=== PATIENT | female | born 1960 | race Caucasian/White ===

== ENCOUNTER 2017-01-01 09:42 | Day surgery (SDC) | payer BC ==
[2016-12-28 13:47] LABS: BASOPHILS 1.9 %; EOSINOPHILS 2.7 %; EOSINOPHILS ABSOLUTE 0.14 10/3/uL (0.0-0.53); HEMOGLOBIN 14.6 g/dL (12.0-16.0); IMMATURE GRANULOCYTES 0.2 %; IMMATURE GRANULOCYTES ABSOLUTE 0.01 10/3/uL (0.0-0.11); LYMPHOCYTES 38.8 %; LYMPHOCYTES ABSOLUTE 2.02 10/3/uL (0.67-4.30); MEAN CORPUS HGB CONC 33.6 g/dL (32.0-36.0); MEAN CORPUSCULAR HEMOGLOB 32.1 pg (26.0-34.0); MEAN CORPUSCULAR VOLUME 95.4 fL (80-100); MEAN PLATELET VOLUME 9.5 fL (9.2-13.0); MONOCYTES 6.7 %; MONOCYTES ABSOLUTE 0.35 10/3/uL (0.21-1.20); NEUTROPHILS 49.7 %; NEUTROPHILS ABSOLUTE 2.58 10/3/uL (2.02-8.40); PLATELET COUNT 242 10/3/uL (150-400); RBC DISTRIBUTION WIDTH 12.9 % (12.0-16.0); RED CELL COUNT 4.55 10/6/uL (4.0-5.6); WHITE BLOOD CELLS 5.2 10/3/uL (4.5-10.5)
[2016-12-28 13:50] LABS: HEMATOCRIT 43.4 % (36.0-48.0); MANUAL DIFF NO %
[2016-12-28 14:04] LABS: BUN (BLOOD UREA NITROGEN) 14 MG/DL (6-23); CALCIUM, SERUM 9.4 MG/DL (8.5-10.4); CHLORIDE, SERUM 110 MMOL/L (96-112); CO2 (CARBON DIOXIDE) 25 MMOL/L (24-34); CREATININE 0.77 MG/DL (0.55-1.02); GFR AFRICAN AMERICAN 100 ML/MIN (>=60); GFR NON AFRICAN AMERICAN 86 ML/MIN (>=60); GLUCOSE, SERUM 97 MG/DL (60-99); SODIUM, SERUM 143 MMOL/L (135-148)
[2016-12-28 14:05] LABS: POTASSIUM, SERUM 5.3 MMOL/L (3.5-5.3)
[2016-12-28 14:18] LABS: PARTIAL THROMBO TIME 22.8 SEC (22.5-37.2); PROTIME (NOT ORD) 12.9 SEC (12.0-14.5)
[2016-12-28 14:20] LABS: PFA (COL/EPI) 283 SEC (72-180)
[2016-12-28 14:25] LABS: PFA (COL/ADP) 80 SEC (51-105)
--- NOTE | ~2017-01-01 | HP ---
History And Physical [address] [address] NAME: CHESTER RUIZ : 60 STATUS : [facility]#: [id number] AGE: 57 ADM/REG DATE : 01/01/17 MR#: [id number] REPORT SERV DATE: 01/19/17 DICTATED BY: BREANA CAMP DATE: 01/19/17 REPORT STATUS : Draft TRANSCRIBED BY: NOEL DATE: 01/19/17 DATE OF ADMISSION: 01/01/2017 PREOPERATIVE DIAGNOSIS: Surgical absence of the breast. 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 PHYSICAL EXAMINATION: HEENT: Within normal limits. BREASTS: Surgical absence of the right breast, late effect of radiation. HEART AND LUNGS: Clear. ABDOMEN: Soft, nontender. Positive bowel sounds. EXTREMITIES: Within normal limits. NEUROLOGIC: Within normal limits. MUSCULOSKELETAL: Within normal limits. IMPRESSION: Surgical absence of the breast, late effect of radiation. PLAN: Tissue survival equipment repairer exchange to definitive implant fat grafting. JOSELITO/NOEL Breana Camp M.D. / [id number] CC: Abdirashid Feliz M.D.
--- NOTE | ~2017-01-01 | OP ---
Record Of Operation [facility] [address] [place]. [address] NAME: CHESTER RUIZ : 60 STATUS : [facility]#: [id number] AGE: 56 ADM/REG DATE : 01/01/17 MR#: [id number] REPORT SERV DATE: 01/01/17 DICTATED BY: BREANA CAMP DATE: 01/01/17 REPORT STATUS : Draft TRANSCRIBED BY: MODJavier DATE: 01/01/17 DATE OF PROCEDURE: 01/01/2017 PREOPERATIVE DIAGNOSIS: Surgical absence of the right breast, breast deformity, late effect of radiation. POSTOPERATIVE DIAGNOSIS: Surgical absence of the right breast, breast deformity, late effect of radiation. PROCEDURE: Fat grafting and implant exchange to a 555 MH. INDICATIONS AND FINDINGS OF THE PROCEDURE: This 56-year-old female is status post a right tissue expansion based reconstruction left reduction and then postoperative radiation. She now has a significant radiation damage to the right breast envelope which required fat grafting and implant exchange. DETAILS OF THE PROCEDURE: The patient was brought to the operating room after being marked in the preoperative holding area. She was prepped and draped in usual sterile fashion for the above-described procedure. First, our attention was turned to the abdomen. Through small stab incisions, she was infiltrated with about 300 mL of wetting solution with about 250 mL of fatty aspirate is now removed through a REVOLVE apparatus. This has been treated appropriately and then transferred into 10 and 3 mL syringes. Incision was then made in the inframammary crease and dissection was carried down to the level of the tissue sock lining examiner. The tissue sock lining examiner was ruptured and removed and a significant capsulotomy was carried out circumferentially excluding the medial component with multiple radial incisions in checkerboards throughout. This was then irrigated, checked for hemostasis, and a 500 mL Sizer was placed into the site. Then with the Sizer in place, the fat grafting was carried out into the topographical map placed before surgery. About 150 mL of fat was used. With this completed, she was once again cleansed with Hibiclens, gloves were changed, and the Sizer was removed. The pocket was inspected for hemostasis. An inferior drain was then placed and a 555 MH implant was placed into the site. This was manipulated into an appropriate position and the wounds were then closed with multiple layers of Vicryl and Monocryl through to an intracuticular in the skin. She was cleansed with peroxide. Dry dressings were placed. The drain was set to suction. She was remanded to the recovery room in stable condition. All sponge and needle counts were correct. JOSELITO/NOEL Breana Camp M.D. / [id number] CC: Record Of Operation [address] [address] NAME: CHESTER RUIZ : 60 STATUS : [facility] PAT#: [id number] AGE: 56 ADM/REG DATE : 01/01/17 MR#: [id number] REPORT SERV DATE: 01/01/17 DICTATED BY: BREANA CAMP DATE: 01/01/17 REPORT STATUS : Draft TRANSCRIBED BY: NOEL DATE: 01/01/17 bAdirashid Feliz M.D.
[~2017-01-01 09:42] MED LIST: ARIMIDEX1 PO; ATV.5 PO; CLARIT10 PO; CYTOXAN; EFFEX37.5 PO; MELATONIN5 M1 PO; NORCO1 TA1 PO; PR25 PO; PRILO PO; ZOFRAN8 PO; ZYRTEC ALLGY10 MG PO
== END 2017-01-01 17:33 | disposition home or self-care (01) ==
LOC: SDC 09:42
PROVIDERS: Surgery Surgery of the Hand
PROC: 0HRT0JZ Replacement of Right Breast with Synthetic Substitute, Open Approach (ICD-10-PCS; 2017-01-01)
PROC: 0HU Skin and Breast, Supplement (ICD-10-PCS; 2017-01-01)
PROC: 0HPT0NZ Removal of Tissue Expander from Right Breast, Open Approach (ICD-10-PCS; principal; 2017-01-01 11:45)
DX: T85.49XA Other mechanical complication of breast prosthesis and implant, initial encounter (principal); Y84.2 Radiological procedure and radiotherapy as the cause of abnormal reaction of the patient, or of later complication, without mention of misadventure at the time of the procedure; K21.9 Gastro-esophageal reflux disease without esophagitis; Z79.899 Other long term (current) drug therapy
CPT/HCPCS: 80048; 85025; 85576; 85610; 85730; 93005; A9270-GY; C1769; C1789; J0690; J1885; J2250; J2405; J3010